=== PATIENT | female | born 1990 | race Caucasian/White ===

== ENCOUNTER 2017-05-23 06:32 | Emergency (ER) | payer OTHER ==
[~2017-05-23] VITALS: Ht 160 cm; Wt 55.3 kg
[2017-05-23 06:48] VITALS: BP 119/72
[2017-05-23] MEDS ORDERED: PYRIDIUM200 M1 PO (07:29)
[2017-05-23] MEDS ORDERED: MACROBID 100 M100 MG PO (07:29)
--- NOTE | 2017-05-23 07:29 | ED GI/GU/ABDOMINAL COMPLAINT ---
History of Present Illness General Chief Complaint: Female Urogenital Problems Stated Complaint: 10 WKS C/O VAG BLEEDING PT C/O URINATION PAIN Source: patient Exam Limitations: no limitations Vital Signs & Intake/Output Vital Signs & Intake/Output Vital Signs Date Time Temp Pulse Resp B/P B/P Pulse O2 O2 Flow FiO2 Mean Ox Delivery Rate 05/23 0648 98.5 85 18 119/72 100 Room Air Allergies Coded Allergies: No Known Allergies (05/23/17) Reconcile Medications Nitrofurantoin Monohyd/M-Cryst (Macrobid 100 MG Capsule) 100 MG CAPSULE 1 CAP PO BID UTI with food Phenazopyridine HCl (Pyridium) 200 MG TABLET 1 TAB PO TID PRN BLADDER SPASMS Triage Note: PT FROM HOME C/O PAIN AND BLOOD TINGED URINE UPON URINATION. PT STATES THAT THE S/S BEGAN 2X DAYS AGO THE BURNING UPON URINATION BEGAN AND THEN LAST NIGHT THE HEMATURIA BEGAN. PT STATES HX OF UTI'S. PT STATES THAT SHE WAS SEEN ON SUNDAY FOR A UTI THAT WAS NEGATIVE, YESTERDAY PT WENT TO CLINIC STATING THAT SHE HAD A BACTERIAL INFECTION "BY VISUAL OF URINE". PT IS 11 WEEKS , [facility] IN [place], PT DENIES LOWER PELVIC CRAMPING OR PAIN. PT STATES HX OF STENT PLACED IN LEFT KIDNEY. PTS VSS, AFEBRILE. PT CHANGED INTOW GOWN AWAITING PROVIDER EVAL Triage Nurses Notes Reviewed? yes ? y Is pt currently ? No HPI: Patient presents for evaluation of urinary frequency urgency and dysuria. Patient states that she was evaluated in the medical clinic for symptoms and had a urinalysis that was negative for infection. She states that symptoms worsened so she went to the [facility] and had a pelvic examination with pelvic cultures. She was told that she would be contacted if her culture results require treatment. Patient states her symptoms have worsened and beginning last night she began having blood in her urine. Patient denies vaginal bleeding and notices blood only when she urinates. She denies back pain fever or cold symptoms. Past History Travel History Traveled to [place] past 21 day No Medical History Any Pertinent Medical History? see below for history EENT: NONE Cardiovascular: NONE Respiratory: NONE Gastrointestinal: NONE Hepatic: NONE Renal: NONE Musculoskeletal: NONE Psychiatric: NONE Endocrine: NONE Surgical History Surgical History: prior left kidney surgery as a child Psychosocial History What is your primary language Yakut Tobacco Use: Never used Family History Hx Contributory? No Review of Systems Review of Systems Constitutional: Reports: no symptoms. EENTM: Reports: no symptoms. Respiratory: Reports: no symptoms. Cardiovascular: Reports: no symptoms. GI: Reports: no symptoms. Genitourinary: Reports: see HPI. Musculoskeletal: Reports: no symptoms. Skin: Reports: no symptoms. Neurological/Psychological: Reports: no symptoms. Hematologic/Endocrine: Reports: no symptoms. Immunologic/Allergic: Reports: no symptoms. All Other Systems: Reviewed and Negative Physical Exam Physical Exam Gastrointestinal: see below Comments: Gen.: Well-nourished, well-developed, no acute respiratory distress. Head: Normocephalic, atraumatic. Eyes: Normal inspection bilaterally Ears: Normal inspection bilaterally Nose: Normal inspection Throat/mouth : Moist mucosa Neck: Supple, full range of motion, no goiter Lungs: Quiet respirations Abdomen: Soft, nontender, nondistended, normal bowel sounds (with palpation of the abdomen the patient stated that she "feels like I have to pee". Back: Normal range of motion Extremities: Normal range of motion grossly, no cyanosis clubbing or edema of the upper extremities Neurologic: Cranial nerves grossly intact, speech is clear Skin: warm and dry Psychiatric: Calm, cooperative, no apparent delusions or hallucinations Pelvic: Not done given the recent pelvic examination Core Measures ACS in differential dx? No Sepsis Present: No Sepsis Focused Exam Completed? No Progress Differential Diagnosis: UTI/pyelo, vaginal bleeding during , vaginitis, spontaneous Plan of Care: Orders Procedure Date/time Status CULTURE,URINE 05/23 652 Active URINALYSIS 05/23 652 Complete Laboratory Tests 05/23/17 0655: Urine Color BLDY H, Urine Clarity CLDY H, Urine pH 6.0, Ur Specific [place] 1.025, Urine Protein 100 H, Urine Ketones TRACE H, Urine Nitrite POS H, Urine Bilirubin MOD H, Urine Urobilinogen 1.0, Ur Leukocyte Esterase LARGE H, Ur Microscopic SEDIMENT EXAMINED, Urine RBC PACKD H, Urine WBC 10-15 H, Ur Epithelial Cells FEW, Urine Bacteria FEW H, Urine Mucus FEW, Urine Hemoglobin LARGE H, Urine Glucose NEG Microbiology 05/23 654 URINE ROUT: Urine Culture - RECD Initial ED EKG: none Comments: Given the patient's classic presentation I will initiate therapy for urinary tract infection. Departure Departure Disposition: HOME OR SELF CARE Condition: Stable Clinical Impression Primary Impression: UTI (urinary tract infection) Qualifiers: Urinary tract infection type: acute cystitis Hematuria presence: with hematuria Qualified Code: N30.01 - Acute cystitis with hematuria Referrals: Patient Has No Primary Care Dr (PCP/Family) John Lopez MD Additional Instructions: Macrobid as prescribed for your urinary tract infection, Pyridium as needed for painful urination or frequency. Follow-up with your [facility] in 48-72 hours if not improving. Notify your primary care physician of this emergency department visit and treatment plan. Return if any concerns or sudden worsening. Thank you for choosing the [facility] Emergency Department for your care. It was a pleasure to serve you today. aVdim Oliveira M.D. [facility] Departure Forms: Customer Survey General Discharge Information Prescriptions: Current Visit Scripts Phenazopyridine HCl (Pyridium) 1 TAB PO TID PRN BLADDER SPASMS #9 TAB Nitrofurantoin Monohyd/M-Cryst (Macrobid 100 MG Capsule) 1 CAP PO BID #14 CAP with food
[2017-05-24] MEDS ORDERED: ZOFRAN ODT4 M1 SL (02:34)
[2017-05-25] MEDS ORDERED: DICLEGIS DR 101 EACH PO (19:53)
== END 2017-05-23 07:34 ==
LOC: ERH 06:32
DX: N39.0 Urinary tract infection, site not specified (principal)
CPT/HCPCS: 81001; 87086